=== PATIENT | male | born 1960 ===

== ENCOUNTER 2020-09-13 13:03 | Emergency (ER) | payer MEDICARE, MEDICAID, SELFPAY ==
--- NOTE | ~2020-09-13 | XR_ITS ---
EXAMINATION: XR ANKLE, RIGHT CLINICAL INFORMATION: Trauma, pain COMPARISON: None TECHNIQUE: AP, lateral, and mortise views of the right ankle. FINDINGS: There is no visible acute or healing fracture or dislocation or destructive process. The malleoli are intact and the ankle mortise is symmetric. There is spurring at tip medial malleolus. The retrocalcaneal recess is preserved. Visualized subtalar joint unremarkable. XR/XR ankle RT min 3V IMPRESSION: No fracture or dislocation.
[2020-09-13 13:44] VITALS: BP 141/86; PULSE 89; RESP 16; TEMP 36.8; O2SAT 100; BMI 24.1
--- NOTE | 2020-09-13 15:08 | ED_ITS ---
HPI - General Adult General Chief complaint: Extremity Injury, Lower Stated complaint: Rash Time Seen by Provider: 09/13/20 13:39 History of Present Illness HPI narrative: Patient with 2 complaints First complaint is itchy rash all over the body sparing the back in the scalp and including hands and genital area He was seen at [facility] for this told he likely has scabies and given permethrin cream which he used several days ago only applying it to the genital area because he misunderstood the directions It seemed to help the genital area briefly but now his whole body itchy remains the same He also complains of pain to right ankle after twisting it about a week ago, he can walk on it and it is improving Related Data Previous Rx's Medication Instructions Recorded cetirizine 10 mg PO DAILY PRN #14 cap 09/13/20 ivermectin 4.5 mg PO Q10D #3 tab 09/13/20 prednisone 40 mg PO DAILY #10 tab 09/15/20 lorazepam [Ativan] 1 mg PO BEDTIME PRN #7 tab 09/18/20 Allergies Allergy/AdvReac Type Severity Reaction Status Date / Time No Known Allergies Allergy Verified 09/13/20 13:43 Review of Systems Review of Systems: Positive for itchy rash Also positive for right ankle pain after twisting it Negatives are no fever no chills no dizziness no weakness no fainting no feeling faint no chest pain no shortness of breath no abdominal pain no nausea or vomiting no sore throat no difficulty breathing or swallowing no numbness weakness or tingling Yes all other systems are reviewed and are negative PMFSH Past Medical History Source: nursing notes reviewed Medical History (Updated 09/19/20 @ 00:01 by Sigrid España) Asthma Physical Exam Vital Signs: Vital Signs: Last Vital Signs Temp 98.2 F 09/13/20 13:44 Pulse 89 09/13/20 13:44 Resp 16 09/13/20 13:44 BP 141/86 H 09/13/20 13:44 Pulse Ox 100 09/13/20 13:44 Body Mass Index 24.1 general appearance no distress Head is normocephalic atraumatic Neck is supple Respiratory no distress Extremities full range of motion x4 including the right ankle which has some lateral malleolar tenderness and mild swelling but patient can walk with a mild limp, neurovascular intact distal Skin there is a papular rash over the arms the trunk the hands including web spaces the legs, some evidence of excoriation but no evidence of infection no tenderness no swelling no petechiae Course Course Course Narrative: patient had not been using is permethrin fowler cream correctly with insufficient application of medication so we are going to try ivermectin as I think scabies is the likely diagnosis The patient had negative ankle x-ray and is diagnosed with a mild ankle sprain and is walking easily Discharge Plan Discharge Clinical Impression: Scabies, Right ankle sprain Patient Disposition: Home, Self-Care Additional Instructions: I wrote for medication Ivermectin which should successfully treat scabies The correct way to use the permethrin cream is to apply it to the whole body below the scalp leave on overnight and shower off in the morning Because prednisone is upsetting her stomach you can stop using it We are trying cetirizine for to help control itch in the day and at night you can use 2 of your hydroxyzine tablets before bedtime If this does not work follow with primary doctor for referral to a casting room helper Return any concerns Prescriptions: New ivermectin 3 mg tablet 4.5 mg PO Q10D Qty: 3 RF: 0 cetirizine 10 mg capsule 10 mg PO DAILY PRN (Reason: allergy symptoms) Qty: 14 RF: 0 No Action prednisone 20 mg tablet 40 mg PO DAILY Qty: 10 RF: 0 lorazepam [Ativan] 1 mg tablet 1 mg PO BEDTIME PRN (Reason: sleep) Qty: 7 RF: 0 Interventions: ED Discharge Assessment Last Done: 09/13/20 15:26 Discharge Date/Time: 09/13/20 15:27
== END 2020-09-13 15:27 | disposition home or self-care (01) ==
PROVIDERS: Emergency Provider Emergency Medicine Emergency Medical Services
DX: B86 Scabies (principal); S93.401A Sprain of unspecified ligament of right ankle, initial encounter; X50.1XXA Overexertion from prolonged static or awkward postures, initial encounter; Y93.9 Activity, unspecified; Y92.9 Unspecified place or not applicable; Y99.9 Unspecified external cause status
CPT/HCPCS: 73610; 99283

== ENCOUNTER 2020-09-15 10:39 | Emergency (ER) | payer MEDICARE, MEDICAID, SELFPAY ==
[2020-09-15 10:54] VITALS: BP 158/89; PULSE 81; RESP 16; TEMP 36.6; O2SAT 100; BMI 24.0
--- NOTE | 2020-09-15 11:28 | ED_ITS ---
HPI - General Adult General Chief complaint: General Medical Stated complaint: rash Time Seen by Provider: 09/15/20 11:07 Source: patient Mode of arrival: ambulatory Limitations: no limitations History of Present Illness HPI narrative: Patient presents to significant itchiness. Patient diagnosed with scabies at [facility] [place] was seen in the ED 2 days ago and was prescribed Ivermectin. Patient just started takingit the past 2 days.. Patient as per prior visit did not use permethin correctly. Patient states now having same issue. Related Data Previous Rx's Medication Instructions Recorded cetirizine 10 mg PO DAILY PRN #14 cap 09/13/20 ivermectin 4.5 mg PO Q10D #3 tab 09/13/20 prednisone 40 mg PO DAILY #10 tab 09/15/20 Allergies Allergy/AdvReac Type Severity Reaction Status Date / Time No Known Allergies Allergy Verified 09/13/20 13:43 Review of Systems Review of Systems: Yes all other systems are reviewed and are negative Constitutional: Constitutional: Reports as per HPI and Reports no additional constitutional complaints Eyes: Eyes: Reports as per HPI and Reports no additional eye complaints ENT: Reports system reviewed and no additional complaints, except as documented and Reports as per HPI Cardiovascular: Cardiovascular: Reports as per HPI and Reports no additional cardiovascular complaints Respiratory: Respiratory: Reports as per HPI and Reports no additional respiratory complaints Gastrointestinal: Gastrointestinal: Reports as per HPI and Reports no additional gastrointestinal complaints Genitourinary: Genitourinary: Reports no additional male genitourinary complaints and Reports as per HPI Musculoskeletal: Musculoskeletal: Reports no additional musculoskeletal complaints and Reports as per HPI Comments: Itchy rash on skin Neurologic: Reports system reviewed and no additional complaints, except as documented and Reports as per HPI Psychiatric: Psychiatric: Reports no additional psychiatric complaints and Reports as per HPI [facility] Social History Social History Advance Directives: No Advance Directives Information Provided: No Physical Exam Vital Signs: Vital Signs: Last Vital Signs Temp 98 F 09/15/20 10:54 Pulse 81 09/15/20 10:54 Resp 16 09/15/20 10:54 BP 158/89 H 09/15/20 10:54 Pulse Ox 100 09/15/20 10:54 Body Mass Index 24.0 Const: General: cooperative, healthy appearing, comfortable, no acute distress, well developed, alert, awake and Physically active Orientation/consciousness: patient oriented x3 HENMT: Head: Yes normal to inspection, Yes No palpable skull fracture present, Yes normocephalic, Yes atraumatic and No abrasion Eyes: General: appearance normal, both eyes and all related structures Neck: Neck: Yes normal visual inspection, Yes full ROM and Yes no lymphadenopathy Chest: Chest palpation & inspection: normal inspection of the chest and normal palpation of entire chest wall Breast/axilla inspection: normal inspection of the breasts Resp: Effort & Inspection: normal respiratory effort and able to speak in complete sentences Auscultation: clear to auscultation bilaterally Cardio: Jugular venous distension: no JVD Heart sounds: S1 normal heart sound present and S2 normal heart sound present GI: Inspection: Yes normal to inspection and No abdominal wall ecchymosis Palpation (GI): Soft to palpation, not firm, nontender, no guarding and not rigid : General: No CVA tenderness and Yes no CVA tenderness Back/Spine/Pelvis: Back: no CVA tenderness, No CVA tenderness and No back tenderness Skin: Other: Positive for itchy papule on bilateral upper extremity, and genital area and thighs. Negative for any rash on the webs of fingers or feet General skin exam: no rashes or lesions noted and elasticity normal Neuro: General: patient oriented x3, gait normal and CN's II-XI intact bilaterally Cranial nerves: Yes CN's II-XII intact bilaterally Extrem: General: Yes normal to inspection and Yes full ROM Psych: Appearance: grossly normal, well kempt and not disheveled Course Course Course Narrative: Will re-evaluate. Reevaluation(s) Reevaluation #1: Patient already on in for permerthrin, ivermectin, cetrizine, promethazine, and hydroxyzine. Differential scabies versus dermatitis. Informed patient continue taking the meds and will discharge at p.o. steroids to regimen. Time: 11:33 Medical Decision Making [facility] Narrative Medical decision making narrative: Scabies, dermatitis Discharge Plan Discharge Clinical Impression: Scabies Patient Disposition: Home, Self-Care Instructions: Scabies (ED), Dermatitis (ED) Additional Instructions: Regrese al servicio de urgencias si tiene fiebre, escalofr?os, hinchaz?n de los labios, hinchaz?n de la lengua, dificultad para respirar, sensaci?n de cierre de la garganta, fiebre, escalofr?os, secreci?n de pus, mal olor, empeoramiento de la erupci?n o cualquier otro s?ntoma preocupante. Contin?e tomando los medicamentos recetados Prescriptions: New prednisone 20 mg tablet 40 mg PO DAILY Qty: 10 RF: 0 No Action ivermectin 3 mg tablet 4.5 mg PO Q10D Qty: 3 RF: 0 cetirizine 10 mg capsule 10 mg PO DAILY PRN (Reason: allergy symptoms) Qty: 14 RF: 0 Referrals: Allen Levy MD [Primary Care Provider] - 2 days (Scabies versus dermatitis. Patient taking permethrin, hydroxyzine, cetirizine, prednisone, and ivermectin.) Stand Alone Forms: Work/School Release Interventions: ED Discharge Assessment Last Done: 09/15/20 12:02 Discharge Date/Time: 09/15/20 12:03 Print Language: Armenian
== END 2020-09-15 12:03 | disposition home or self-care (01) ==
PROVIDERS: Emergency Provider Emergency Medicine; PCP Internal Medicine
DX: B86 Scabies (principal)
CPT/HCPCS: 99283

== ENCOUNTER 2020-09-18 14:11 | Emergency (ER) | payer MEDICARE, MEDICAID, SELFPAY ==
[2020-09-18 15:04] VITALS: BP 109/63; PULSE 81; RESP 16; TEMP 37.2; O2SAT 99; BMI 24.0
--- NOTE | 2020-09-18 15:12 | ED.SKABFB ---
HPI - Skin/Abscess/Foreign Bdy General Chief complaint: Skin/Abscess/Foreign Body Stated complaint: rash Time Seen by Provider: 09/18/20 15:12 History of Present Illness HPI narrative: This chart was opened in air there is no other chart that is completed and signed for this visit on this day Related Data Previous Rx's Medication Instructions Recorded cetirizine 10 mg PO DAILY PRN #14 cap 09/13/20 ivermectin 4.5 mg PO Q10D #3 tab 09/13/20 prednisone 40 mg PO DAILY #10 tab 09/15/20 lorazepam [Ativan] 1 mg PO BEDTIME PRN #7 tab 09/18/20 Allergies Allergy/AdvReac Type Severity Reaction Status Date / Time No Known Allergies Allergy Verified 09/13/20 13:43 [facility] Past Medical History Medical History (Updated 09/18/20 @ 16:35 by ALAYNA Thomas) Asthma Social History Social History Advance Directives: No Advance Directives Information Provided: No Physical Exam Vital Signs: Vital Signs: Last Vital Signs Temp 98.9 F 09/18/20 15:04 Pulse 81 09/18/20 15:04 Resp 16 09/18/20 15:04 BP 109/63 09/18/20 15:04 Pulse Ox 99 09/18/20 15:04 Body Mass Index 24.0 Discharge Plan Discharge Clinical Impression: Paraphimosis, Rash, skin Patient Disposition: Home, Self-Care Additional Instructions: The paraphimosis was reduced If foreskin gets stuck back any time return to the ER immediately as the longer it is stuck them worse the swelling in the more risks the circulation Follow with urologist for this problem For the rash which we think is scabies you took the medication 3 days ago and it is too soon to know if it worked so I will not change any treatment now As it is making it hard to sleep I wrote a prescription for some Ativan that can be used only at night if the itching is making it very difficult to sleep, this medicine does not help the itch but it may relaxing when able due to fall asleep It causes drowsiness so no driving for 6 hours after taking Prescriptions: New lorazepam [Ativan] 1 mg tablet 1 mg PO BEDTIME PRN (Reason: sleep) Qty: 7 RF: 0 No Action ivermectin 3 mg tablet 4.5 mg PO Q10D Qty: 3 RF: 0 cetirizine 10 mg capsule 10 mg PO DAILY PRN (Reason: allergy symptoms) Qty: 14 RF: 0 prednisone 20 mg tablet 40 mg PO DAILY Qty: 10 RF: 0 Referrals: Dagoberto Dunham MD [Physician] - 2 days (Paraphimosis reduced in the ER, 2nd time he has had a paraphimosis)
--- NOTE | 2020-09-18 16:40 | ED.SKABFB ---
HPI - Skin/Abscess/Foreign Bdy General Chief complaint: Skin/Abscess/Foreign Body Stated complaint: rash Time Seen by Provider: 09/18/20 15:12 History of Present Illness HPI narrative: Patient complains of inability to retract foreskin and swelling of the end of the penis for 3 days, he also complains of an itchy rash that he has had for many weeks and was just recently treated for scabies He has no burning with urination no abdominal pain no nausea no vomiting Related Data Previous Rx's Medication Instructions Recorded cetirizine 10 mg PO DAILY PRN #14 cap 09/13/20 ivermectin 4.5 mg PO Q10D #3 tab 09/13/20 prednisone 40 mg PO DAILY #10 tab 09/15/20 lorazepam [Ativan] 1 mg PO BEDTIME PRN #7 tab 09/18/20 Allergies Allergy/AdvReac Type Severity Reaction Status Date / Time No Known Allergies Allergy Verified 09/13/20 13:43 Review of Systems Review of Systems: Positive for inability to retract foreskin and a skin rash Negatives are no fever no chills no dizziness no weakness no headache no neck pain no throat swelling no shortness of breath no chest pain no abdominal pain no back pain no burning with urination or frequency of urination no discharge no testicular swelling no flank pain no blood in the urine Yes all other systems are reviewed and are negative PMFSH Past Medical History Source: nursing notes reviewed Medical History (Updated 09/19/20 @ 00:01 by Sigrid España) Asthma Physical Exam Vital Signs: Vital Signs: Last Vital Signs Temp 98.9 F 09/18/20 15:04 Pulse 81 09/18/20 15:04 Resp 16 09/18/20 15:04 BP 109/63 09/18/20 15:04 Pulse Ox 99 09/18/20 15:04 Body Mass Index 24.0 General appearance is no acute distress The neck is supple The eyes are not red there is no discharge Pharynx is clear Chest is clear to auscultation bilateral Abdomen soft nontender Genital exam there is a paraphimosis with pinkish reddish skin for the distal penis no necrotic area no blackness, no testicular swelling no discharge Extremities no edema Skin there is a papular rash that is generalized with some excoriation but no evidence of cellulitis or abscess Course Course Course Narrative: Paraphimosis was fully reduced with ice elevation compression and gentle pressure and foreskin was in appropriate place The rash she is advised as he just took the treatment for scabies which is the prior diagnosis 3 days ago it is too soon to know if the medication worked and he will follow with primary doctor or return if not improved in a few days Patient will follow with urologist to discuss need for circumcision or any further treatment for his paraphimosis which has now happened twice in his life The rash showed no sign of infection or any acute or dangerous problem and will be re-evaluated if the treatment for scabies did not work Discharge Plan Discharge Clinical Impression: Paraphimosis, Rash, skin Patient Disposition: Home, Self-Care Additional Instructions: The paraphimosis was reduced If foreskin gets stuck back any time return to the ER immediately as the longer it is stuck them worse the swelling in the more risks the circulation Follow with urologist for this problem For the rash which we think is scabies you took the medication 3 days ago and it is too soon to know if it worked so I will not change any treatment now As it is making it hard to sleep I wrote a prescription for some Ativan that can be used only at night if the itching is making it very difficult to sleep, this medicine does not help the itch but it may relaxing when able due to fall asleep It causes drowsiness so no driving for 6 hours after taking Prescriptions: New lorazepam [Ativan] 1 mg tablet 1 mg PO BEDTIME PRN (Reason: sleep) Qty: 7 RF: 0 No Action ivermectin 3 mg tablet 4.5 mg PO Q10D Qty: 3 RF: 0 cetirizine 10 mg capsule 10 mg PO DAILY PRN (Reason: allergy symptoms) Qty: 14 RF: 0 prednisone 20 mg tablet 40 mg PO DAILY Qty: 10 RF: 0 Referrals: Dagoberto Dunham MD [Physician] - 2 days (Paraphimosis reduced in the ER, 2nd time he has had a paraphimosis) Interventions: ED Discharge Assessment Last Done: 09/18/20 16:57 Discharge Date/Time: 09/18/20 16:59
== END 2020-09-18 16:59 | disposition home or self-care (01) ==
PROVIDERS: Emergency Provider Emergency Medicine; PCP Internal Medicine
DX: N47.2 Paraphimosis (principal)
CPT/HCPCS: 99283

== ENCOUNTER → 2020-10-08 13:16 | Outpatient (BNVA) | payer MEDICARE, MEDICAID, SELFPAY | PROVIDERS: PCP Internal Medicine; Visit Provider Urology | DX: L29.1 Pruritus scroti (principal) | CPT/HCPCS: 99202 ==

== ENCOUNTER 2020-10-31 14:37 | Emergency (ER) | payer MEDICARE, MEDICAID, SELFPAY ==
[2020-10-31 16:06] VITALS: BP 135/76; PULSE 108; RESP 18; TEMP 37.9; O2SAT 98; BMI 24.2
[2020-10-31 17:30] VITALS: BP 130/77; PULSE 103; TEMP 38.1; O2SAT 97
[2020-10-31 18:16] LABS: COVID-19 Test Positive (Negative)
--- NOTE | 2020-10-31 18:40 | ED.URI ---
HPI - URI/Sore Throat General Chief Complaint: Upper Respiratory Symptoms Stated Complaint: fever Time Seen by Provider: 10/31/20 18:35 Source: patient Mode of arrival: ambulatory Limitations: no limitations History of Present Illness HPI Narrative: Patient receivedfirst shot of COVID on 08/02/2020 did not receive 2nd shot ,went to [facility] comes back here for last 4 days of cold symptoms body aches other family member sick with same symptoms denies any significant shortness of breath patient was saturating 98% at room air low-grade fever body aches and dry cough Related Data Home Medications Medication Instructions Recorded Confirmed cimetidine 400 mg tablet mg PO 10/08/20 hydroxyzine HCl 10 mg tablet mg PO 10/08/20 permethrin 5 % topical cream appl TOPICAL 10/08/20 Previous Rx's Medication Instructions Recorded cetirizine 10 mg capsule 10 mg PO DAILY PRN #14 cap 09/13/20 ivermectin 3 mg tablet 4.5 mg PO Q10D #3 tab 09/13/20 prednisone 20 mg tablet 40 mg PO DAILY #10 tab 09/15/20 lorazepam 1 mg tablet (Ativan) 1 mg PO BEDTIME PRN #7 tab 09/18/20 amitriptyline 50 mg tablet 50 mg PO BEDTIME 30 Days #30 tab 10/08/20 doxycycline hyclate 100 mg tablet 100 mg PO BID 7 Days #14 tab 10/08/20 Allergies Allergy/AdvReac Type Severity Reaction Status Date / Time No Known Allergies Allergy Verified 10/08/20 13:27 Review of Systems Review of Systems: Yes all other systems are reviewed and are negative PMFSH Past Medical History Medical History Asthma Social History Social History Patient Tobacco Use Status: Never used Tobacco Use of substances other than those prescribed or required for medical reasons: No Advance Directives: No Advance Directives Information Provided: Yes Physical Exam Vital Signs: Vital Signs: Last Vital Signs Temp 100.5 F H 10/31/20 17:30 Pulse 103 H 10/31/20 17:30 Resp 18 10/31/20 16:06 BP 130/77 10/31/20 17:30 Pulse Ox 97 10/31/20 17:30 Body Mass Index 24.2 Appearance: Alert. Oriented X3. No acute distress. Eyes: PERRLA, No Nystagmus ENT: Pharynx normal. Oral Mucosa moist Neck: Normal inspection. Neck supple. CVS: Normal heart rate and rhythm. Pulses normal. Respiratory: No respiratory distress. Equal air entry bilateral, no wheezing/rales/rhonchi Abdomen: Soft and nontender. Bowel sounds are present, no mass palpable, no CVA tenderness Skin: Skin warm and dry. Normal skin color. Normal skin turgor. Extremities: No lower extremity edema. No calf tenderness Neuro: Oriented X 3. No motor deficit. MDM - URI/Sore Throat MDM Narrative Medical decision making narrative: Patient with mild COVID symptoms partially vaccinated saturating 98% will treat him symptomatically will give him prescription for Decadron advised to drink plenty of fluids and take Tylenol for fever Lab Data Attestation: I reviewed the patient's lab results. Labs: Lab Results 10/31/20 Range/Units 17:59 COVID-19 (VENKAT) Positive A (Negative) COVID-19 Clin Com See Note Discharge Plan Discharge Prescriptions: No Action ivermectin 3 mg tablet 4.5 mg PO Q10D Qty: 3 RF: 0 cetirizine 10 mg capsule 10 mg PO DAILY PRN (Reason: allergy symptoms) Qty: 14 RF: 0 prednisone 20 mg tablet 40 mg PO DAILY Qty: 10 RF: 0 lorazepam [Ativan] 1 mg tablet 1 mg PO BEDTIME PRN (Reason: sleep) Qty: 7 RF: 0 doxycycline hyclate 100 mg tablet 100 mg PO BID 7 Days Qty: 14 RF: 0 amitriptyline 50 mg tablet 50 mg PO BEDTIME 30 Days Qty: 30 RF: 0
[2020-10-31] MEDS: dexAMETHasone 6 MG TABLET PO (19:06)
[2020-10-31] MEDS: Acetaminophen 325 MG TABLET 650 MG PO (19:06)
== END 2020-10-31 20:09 | disposition home or self-care (01) ==
PROVIDERS: Emergency Provider Internal Medicine; PCP Internal Medicine
DX: J06.9 Acute upper respiratory infection, unspecified (principal); R50.9 Fever, unspecified; R05 Cough; Z20.822 Contact with and (suspected) exposure to COVID-19; Z79.899 Other long term (current) drug therapy
CPT/HCPCS: 36415; 87635; 99285; J8540

== ENCOUNTER 2020-11-09 13:05 | Emergency (ER) | payer MEDICARE, MEDICAID, SELFPAY ==
--- NOTE | 2020-11-09 | ECG_ITS ---
Test Reason : CHEST PAIN Blood Pressure : / mmHG Vent. Rate : 059 BPM Atrial Rate : 059 BPM P-R Int : 152 ms QRS Dur : 086 ms QT Int : 402 ms P-R-T Axes : 051 036 025 degrees QTc Int : 397 ms Sinus bradycardia Otherwise normal ECG No previous ECGs available Referred By: Generic ED Physician Electronically Signed By:MANUEL FLEMING MD
--- NOTE | ~2020-11-09 | XR_ITS ---
EXAMINATION: XR CHEST CLINICAL INFORMATION: Shortness of breath, chest pain. Covid positive. COMPARISON: None TECHNIQUE: Frontal view of the chest was obtained. FINDINGS: The lungs are clear. The cardiomediastinal silhouette is normal in size. There is no pleural effusion or pneumothorax. No acute osseous abnormality. XR/XR chest 1V IMPRESSION: No acute cardiopulmonary findings.
[2020-11-09 15:32] VITALS: BP 157/91; PULSE 72; RESP 18; TEMP 35.6; O2SAT 100; BMI 24.0
[2020-11-09 16:30] LABS: MANUAL DIFF FLAG NO
[2020-11-09 16:32] LABS: Basophils Percent Auto 0.1 % (0-2); Eosinophils Absolute Auto 0.2 X10*3/uL (0.0-0.4); Eosinophils Percent Auto 2.4 % (0-4); Hematocrit 45.8 % (42-52); Imm Gran Abs Auto 0.23 X10*3/uL (0.00-0.03); Imm Gran Pct Auto 2.6 % (0.0-0.4); Lymphocytes Absolute Auto 2.5 X10*3/uL (1.2-4.9); Mean Corpuscular HGB Conc 32.8 g/dl (31.0-36.0); Mean Corpuscular Hemoglobin 29.3 pg (27.0-33.0); Mean Corpuscular Volume 89.5 fL (80-98); Mean Platelet Volume 9.9 fL (9.4-12.4); Monocytes Absolute Auto 0.7 X10*3/uL (0.1-1.2); Monocytes Percent Auto 7.5 % (2-11); Neutrophils Absolute Auto 5.3 X10*3/uL (2.0-8.3); Neutrophils Percent Auto 59.4 % (45-73); Platelet Count 253 X10*3/uL (160-400); Red Blood Count 5.12 X10*6/uL (4.60-5.80); White Blood Count 8.9 X10*3/uL (4.8-10.8)
[2020-11-09 16:43] LABS: D Dimer < 200 NG/ML
[2020-11-09 16:54] LABS: Anion Gap 10 (12-20); Blood Urea Nitrogen 19 mg/dL (9-16); Calcium 9.1 mg/dL (8.4-10.2); Carbon Dioxide 32 mmol/L (22-29); Chloride 105 mmol/L (96-108); Estimated Glomerular Filt Rate > 60; Glucose Random 87 mg/dL (60-115); Potassium 3.9 mmol/L (3.3-5.1); Sodium 143 mmol/L (135-145)
[2020-11-09 19:13] LABS: Troponin-I High Sensitivity < 3.5 ng/L (<3.5-35.0)
--- NOTE | 2020-11-09 19:17 | ED.CHESTPAIN ---
HPI - Chest Pain General Chief Complaint: Chest Pain Stated Complaint: covid positive, sob chest pain Time Seen by Provider: 11/09/20 19:03 Source: patient and lang interpreter Mode of arrival: ambulatory Limitations: no limitations and language barrier History of Present Illness HPI narrative: 60-year-old male with a past medical history of asthma here with complaints of epigastric burning at 07:00 this morning with 1 episode of vomiting. This occurred after he ate his breakfast. Denies any associated shortness of breath, cough, fever, chills. Patient was COVID positive October 31. He tells me he had mild cough and cold symptoms which lasted several days and have resolved and he has been feeling well. No leg swelling or pain. No fevers or chills. No history of GERD Related Data Home Medications Medication Instructions Recorded Confirmed cimetidine 400 mg tablet mg PO 10/08/20 hydroxyzine HCl 10 mg tablet mg PO 10/08/20 permethrin 5 % topical cream appl TOPICAL 10/08/20 Previous Rx's Medication Instructions Recorded cetirizine 10 mg capsule 10 mg PO DAILY PRN #14 cap 09/13/20 ivermectin 3 mg tablet 4.5 mg PO Q10D #3 tab 09/13/20 prednisone 20 mg tablet 40 mg PO DAILY #10 tab 09/15/20 lorazepam 1 mg tablet (Ativan) 1 mg PO BEDTIME PRN #7 tab 09/18/20 amitriptyline 50 mg tablet 50 mg PO BEDTIME 30 Days #30 tab 10/08/20 doxycycline hyclate 100 mg tablet 100 mg PO BID 7 Days #14 tab 10/08/20 dexamethasone 6 mg tablet 6 mg PO DAILY #7 tab 10/31/20 (Decadron) omeprazole 40 mg capsule,delayed 40 mg PO DAILY #30 cap 11/09/20 release Allergies Allergy/AdvReac Type Severity Reaction Status Date / Time No Known Allergies Allergy Verified 10/08/20 13:27 Review of Systems Review of Systems: Yes all other systems are reviewed and are negative Constitutional: Constitutional: Reports no additional constitutional complaints, Denies body ache(s), Denies chills, Denies fever(s), Denies headache(s) and Denies weakness Eyes: Eyes: Reports no additional eye complaints and Denies change in vision ENT: Reports system reviewed and no additional complaints, except as documented, Denies dizziness, Denies headache(s), Denies nasal congestion, Denies nasal discharge and Denies neck pain Cardiovascular: Cardiovascular: Reports no additional cardiovascular complaints, Denies chest pain, Denies leg edema and Denies dyspnea Respiratory: Respiratory: Reports no additional respiratory complaints, Denies cough and Denies dyspnea Gastrointestinal: Gastrointestinal: Reports no additional gastrointestinal complaints, Reports abdominal pain, Denies diarrhea, Reports nausea and Reports vomiting Genitourinary: Genitourinary: Denies urinary incontinence Musculoskeletal: Musculoskeletal: Reports no additional musculoskeletal complaints, Denies back pain, Denies arthralgias, Denies joint swelling, Denies neck pain, Denies numbness and Denies tingling Integumentary/Breasts: Skin/Breast: Reports system reviewed and no additional complaints, except as docu and Denies rash Neurologic: Reports system reviewed and no additional complaints, except as documented, Denies Abnormal speech present, Denies dizziness, Denies headache(s), Denies numbness, Denies tingling and Denies weakness PMF Past Medical History Attestation statement: The following information was validated with the patient. Source: old records reviewed and nursing notes reviewed Medical History Asthma Social History Social History Patient Tobacco Use Status: Never used Tobacco Advance Directives: No Advance Directives Information Provided: No Physical Exam Vital Signs: Vital Signs: Last Vital Signs Temp 96.1 F L 11/09/20 15:32 Pulse 72 11/09/20 15:32 Resp 18 11/09/20 15:32 BP 157/91 H 11/09/20 15:32 Pulse Ox 100 11/09/20 15:32 Body Mass Index 24.0 Const: General: cooperative, healthy appearing, comfortable and no acute distress Orientation/consciousness: patient oriented x3 Limitations: no limitations HENMT: Head: Yes normal to inspection Ears: hearing grossly normal bilaterally General nose exam: Normal external nose present Face and sinus: Yes normal facial exam Mouth: Normal oral and palatal mucosa present Throat: Yes posterior oropharynx normal Eyes: General: appearance normal, both eyes and all related structures Pupils: Equal, round and reactive pupils present Neck: Neck: Yes normal visual inspection Chest: Chest palpation & inspection: normal inspection of the chest Resp: Effort & Inspection: normal respiratory effort Auscultation: clear to auscultation bilaterally Cardio: Rate: regular rate Rhythm: regular rhythm Peripheral pulses: Peripheral pulses 2+ throughout GI: Other: No rebound Inspection: Yes normal to inspection Palpation (GI): Soft to palpation, nontender and no guarding Auscultation: normal bowel sounds Back/Spine/Pelvis: Thoracic/Lumbar Spine: thoracic and lumbar spine normal to inspection Skin: General skin exam: no rashes or lesions noted Neuro: General: patient oriented x3, no focal motor deficits and normal sensation to monofilament Cranial nerves: Yes Equal, round and reactive pupils present Cognition (Neuro): normal cognition Speech: No Abnormal speech present Gait exam (Neuro): Normal gait present Motor exam (neuro): 5/5 motor strength present throughout Extrem: General: Yes normal to inspection, Yes no pedal edema and Yes no calf tenderness Course Course Course Narrative: 60-year-old male who was COVID positive October 31 with mild symptoms is here today after having 1 episode of vomiting with some epigastric burning at 07:00 this morning after eating his breakfast.. Patient tells me since being in the waiting room his symptoms have completely resolved. On my exam he has no complaints of pain or nausea and is drinking fluids with no difficulty. He denies any associated shortness of breath, chest pain, fevers or chills with the above symptoms. Will check labs, EKG, chest x-ray. 2000-labs unremarkable. EKG shows no acute finding and chest x-ray is normal. Likely gastric reflux.. Will start patient on PPI and recommend GERD diet. Reviewed worrisome signs and symptoms of when to return to the emergency department. Comfortable discharge home. MDM - Chest Pain Medical Records Data Attestation: I reviewed the patient's medical records. Lab Data Attestation: I reviewed the patient's lab results. Result diagrams: 11/09/20 16:26 11/09/20 16: Labs: Lab Results 11/09/20 11/09/20 11/09/20 Range/Units 16:26 16:26 16:26 WBC 8.9 (4.8-10.8) X10*3/uL RBC 5.12 (4.60-5.80) X10*6/uL Hgb 15.0 (14.0-18.0) g/dl Hct 45.8 (42-52) % MCV 89.5 (80-98) fL MCH 29.3 (27.0-33.0) pg MCHC 32.8 (31.0-36.0) g/dl RDW 12.0 (11.0-16.0) % Plt Count 253 (160-400) X10*3/uL MPV 9.9 (9.4-12.4) fL Immature Gran % (Auto) 2.6 H (0.0-0.4) % Neut % (Auto) 59.4 (45-73) % Lymph % (Auto) 28.0 (20-40) % [place] % (Auto) 7.5 (2-11) % Eos % (Auto) 2.4 (0-4) % Baso % (Auto) 0.1 (0-2) % Lymph # (Auto) 2.5 (1.2-4.9) X10*3/uL [place] # (Auto) 0.7 (0.1-1.2) X10*3/uL Eos # (Auto) 0.2 (0.0-0.4) X10*3/uL Baso # (Auto) 0.0 (0.0-0.2) X10*3/uL Abs Immat Gran (auto) 0.23 H (0.00-0.03) X10*3/uL Absolute Neuts (auto) 5.3 (2.0-8.3) X10*3/uL Absolute Nucleated RBC 0.000 (0.0-0.012) X10*3/uL Nucleated RBC % (auto) 0.0 (0.0-0.2) /100WBC D-Dimer < 200 NG/ML Sodium 143 (135-145) mmol/L Potassium 3.9 (3.3-5.1) mmol/L Chloride 105 (96-108) mmol/L Carbon Dioxide 32 H (22-29) mmol/L Anion Gap 10 L (12-20) BUN 19 H (9-16) mg/dL Creatinine 0.88 (0.5-1.4) mg/dL Estim Creat Clear Calc 95.0 Estimated GFR > 60 Random Glucose 87 (60-115) mg/dL Calcium 9.1 (8.4-10.2) mg/dL Magnesium 2.2 (1.6-2.6) mg/dL Ferritin 288 H (20-250) ng/mL Total Bilirubin 0.4 (0.0-1.0) mg/dL Direct Bilirubin < 0.2 (0.0-0.5) mg/dL AST 19 (5-37) U/L ALT 30 (0-40) U/L Alkaline Phosphatase 86 (39-117) U/L Lactate Dehydrogenase 182 (118-273) U/L Troponin I High Sens (<3.5-35.0) ng/L C-Reactive Protein 0.15 (< or = 0.50) mg/dL Total Protein 7.2 (6.5-8.0) g/dL Albumin 4.1 (3.5-5.0) g/dL Procalcitonin ng/mL 11/09/20 11/09/20 Range/Units 16:26 18:43 WBC (4.8-10.8) X10*3/uL RBC (4.60-5.80) X10*6/uL Hgb (14.0-18.0) g/dl Hct (42-52) % MCV (80-98) fL MCH (27.0-33.0) pg MCHC (31.0-36.0) g/dl RDW (11.0-16.0) % Plt Count (160-400) X10*3/uL MPV (9.4-12.4) fL Immature Gran % (Auto) (0.0-0.4) % Neut % (Auto) (45-73) % Lymph % (Auto) (20-40) % [place] % (Auto) (2-11) % Eos % (Auto) (0-4) % Baso % (Auto) (0-2) % Lymph # (Auto) (1.2-4.9) X10*3/uL [place] # (Auto) (0.1-1.2) X10*3/uL Eos # (Auto) (0.0-0.4) X10*3/uL Baso # (Auto) (0.0-0.2) X10*3/uL Abs Immat Gran (auto) (0.00-0.03) X10*3/uL Absolute Neuts (auto) (2.0-8.3) X10*3/uL Absolute Nucleated RBC (0.0-0.012) X10*3/uL Nucleated RBC % (auto) (0.0-0.2) /100WBC D-Dimer NG/ML Sodium (135-145) mmol/L Potassium (3.3-5.1) mmol/L Chloride (96-108) mmol/L Carbon Dioxide (22-29) mmol/L Anion Gap (12-20) BUN (9-16) mg/dL Creatinine (0.5-1.4) mg/dL Estim Creat Clear Calc Estimated GFR Random Glucose (60-115) mg/dL Calcium (8.4-10.2) mg/dL Magnesium (1.6-2.6) mg/dL Ferritin (20-250) ng/mL Total Bilirubin (0.0-1.0) mg/dL Direct Bilirubin (0.0-0.5) mg/dL AST (5-37) U/L ALT (0-40) U/L Alkaline Phosphatase (39-117) U/L Lactate Dehydrogenase (118-273) U/L Troponin I High Sens < 3.5 (<3.5-35.0) ng/L C-Reactive Protein (< or = 0.50) mg/dL Total Protein (6.5-8.0) g/dL Albumin (3.5-5.0) g/dL Procalcitonin 0.02 ng/mL Imaging Data Chest x-ray: Attestation: I personally reviewed and interpreted this imaging study as follows: Radiologist's impression: [place] [id number] XRay Report Signed Patient: Andrea Ba MR#: [id number] : 1960 Acct:[id number] Age/Sex: 60 / M ADM Date: 11/09/20 Loc: .ED Attending Dr: Ordering Physician: KECIA MATTA NP Date of Service: 11/09/20 Procedure(s): XR chest 1V Accession Number(s): [id number] cc: KECIA MATTA NP~ EXAMINATION: XR CHEST CLINICAL INFORMATION: Shortness of breath, chest pain. Covid positive. COMPARISON: None TECHNIQUE: Frontal view of the chest was obtained. FINDINGS: The lungs are clear. The cardiomediastinal silhouette is normal in size. There is no pleural effusion or pneumothorax. No acute osseous abnormality. XR/XR chest 1V IMPRESSION: No acute cardiopulmonary findings. ECG Data ECG #1: Attestation: I personally reviewed and interpreted this ECG as follows: ECG interpretation date: 11/09/20 ECG interpretation time: 20:00 Interpretation: Normal sinus rhythm with a rate of 59, normal TX, normal QRS, normal QT Discharge Plan Discharge Clinical Impression: GERD (gastroesophageal reflux disease) Patient Disposition: Home, Self-Care Instructions: Gastroesophageal Reflux Disease (ED) Additional Instructions: Your EKG, labs all look normal. This is likely gastric reflux. Follow up with her primary care doctor as needed Prescriptions: New omeprazole 40 mg capsule,delayed release(DR/EC) 40 mg PO DAILY Qty: 30 RF: 0 No Action ivermectin 3 mg tablet 4.5 mg PO Q10D Qty: 3 RF: 0 cetirizine 10 mg capsule 10 mg PO DAILY PRN (Reason: allergy symptoms) Qty: 14 RF: 0 dexamethasone [Decadron] 6 mg tablet 6 mg PO DAILY Qty: 7 RF: 0 prednisone 20 mg tablet 40 mg PO DAILY Qty: 10 RF: 0 lorazepam [Ativan] 1 mg tablet 1 mg PO BEDTIME PRN (Reason: sleep) Qty: 7 RF: 0 doxycycline hyclate 100 mg tablet 100 mg PO BID 7 Days Qty: 14 RF: 0 amitriptyline 50 mg tablet 50 mg PO BEDTIME 30 Days Qty: 30 RF: 0 Referrals: Physician,Unknown [Primary Care Provider] - 2 days Print Language: Divehi
[2020-11-09 19:26] LABS: Alanine Aminotransferase 30 U/L (0-40); Albumin Level 4.1 g/dL (3.5-5.0); Alkaline Phosphatase 86 U/L (39-117); Aspartate Amino Transferase 19 U/L (5-37); Bilirubin Direct < 0.2 mg/dL (0.0-0.5); Bilirubin Total 0.4 mg/dL (0.0-1.0); C Reactive Protein 0.15 mg/dL (< or = 0.50); Lactate Dehydrogenase 182 U/L (118-273); Magnesium 2.2 mg/dL (1.6-2.6); Total Protein 7.2 g/dL (6.5-8.0)
[2020-11-09 19:46] LABS: Ferritin 288 ng/mL (20-250)
[2020-11-09 19:47] LABS: Procalcitonin 0.02 ng/mL
[2020-11-09 20:05] LABS: B Type Natriuretic Peptide 29 pg/mL (<100)
[2020-11-09 21:02] VITALS: BP 144/82; PULSE 72; RESP 16; O2SAT 100
== END 2020-11-09 21:04 | disposition home or self-care (01) ==
PROVIDERS: Nurse Practitioner Family; Emergency Provider Emergency Medicine Emergency Medical Services
DX: K21.9 Gastro-esophageal reflux disease without esophagitis (principal); J45.909 Unspecified asthma, uncomplicated; Z86.16 Personal history of COVID-19
CPT/HCPCS: 36415; 71045; 80048; 80076; 82728; 83615; 83735; 83880; 84145; 84484; 85025; 85379; 86140; 93005; 99283

== ENCOUNTER 2021-05-18 10:39 | Outpatient (REF) | payer MEDICARE, MEDICAID, SELFPAY ==
[2021-05-18 11:08] LABS: Binax Now Covid-19 Ag Negative (Negative)
[2021-05-18 11:09] LABS: Binax Internal Control QC Valid; Binax Performed by: HO.BONILM
== END 2021-05-18 10:40 | disposition home or self-care (01) ==
LOC: HO.HMGCLDS 10:39
PROVIDERS: PCP Internal Medicine; Visit Provider Physician Assistant
DX: Z13.89 Encounter for screening for other disorder (principal)

== ENCOUNTER 2022-08-13 08:57 | Emergency (ER) | payer MEDICARE, MEDICAID, SELFPAY ==
[2022-08-13 09:00] VITALS: BP 131/76; PULSE 74; RESP 16; TEMP 36.6; O2SAT 98; BMI 24.0
--- NOTE | 2022-08-13 09:06 | ED_ITS ---
HPI - Back Pain/Injury General Chief Complaint: Back Pain/Injury Stated Complaint: R side lower back pain Time Seen by Provider: 08/13/22 09:04 Source: patient and old records reviewed Mode of arrival: ambulatory Limitations: no limitations History of Present Illness HPI Narrative: 62 yo Japanese speaking male presents to the ER for evaluation of right sided low back pain for the last 4 days after doing heavy lifting. He states the pain started gradually and has gotten worse over the last few days. The pain is located in his right lower back and radiates to the right buttock and right hip and thigh. He is having trouble sleeping due to the pain. It is worse with movement. No urinary or bowel issues. No fever or chills. No weakness in numbness in his legs. MD elicited complaint: back pain Onset (ago): day(s) (4) Timing: constant and progressively worsening Severity: severe Pain scale (0-10): 10 Similar Symptoms Previously: Yes Quality: stabbing and aching Location: right lower back Radiation: buttocks and right upper leg Exacerbating factors: movement Relieving factors: immobilization Context: while lifting Associated symptoms: denies other symptoms Treatments prior to arrival: other medications Work related injury: No Related Data Home Medications Medication Instructions Recorded Confirmed cimetidine 400 mg tablet mg PO 10/08/20 hydroxyzine HCl 10 mg tablet mg PO 10/08/20 permethrin 5 % topical cream appl topical 10/08/20 Previous Rx's Medication Instructions Recorded cetirizine 10 mg capsule 10 mg PO DAILY PRN allergy 09/13/20 symptoms #14 caps lorazepam 1 mg tablet (Ativan) 1 mg PO BEDTIME PRN sleep #7 tabs 09/18/20 amitriptyline 50 mg tablet 50 mg PO BEDTIME 30 days #30 tabs 10/08/20 dexamethasone 6 mg tablet 6 mg PO DAILY #7 tabs 10/31/20 (Decadron) omeprazole 40 mg capsule,delayed 40 mg PO DAILY #30 caps 11/09/20 release cyclobenzaprine 10 mg tablet 10 mg PO TID PRN muscle spasm #14 08/13/22 tabs ibuprofen 600 mg tablet 600 mg PO Q8H PRN pain #14 tabs 08/13/22 lidocaine 5 % topical patch 1 patch topical DAILY #15 ea 08/13/22 prednisone 20 mg tablet 40 mg PO DAILY #10 tabs 08/13/22 Allergies Allergy/AdvReac Type Severity Reaction Status Date / Time No Known Allergies Allergy Verified 05/18/21 10:20 Review of Systems Review of Systems: Yes all other systems are reviewed and are negative [facility] Past Medical History Medical History Asthma Social History Social History Alcohol intake: current Alcohol intake frequency: holidays/special occasions only Alcohol type: beer Patient Tobacco Use Status: Never used Tobacco Smoked in Last 30 Days: No Use of substances other than those prescribed or required for medical reasons: No Advance Directives: No Advance Directives Information Provided: Yes Physical Exam Vital Signs: Vital Signs: Last Vital Signs Temp 97.8 F 08/13/22 09:00 Pulse 74 08/13/22 09:00 Resp 16 08/13/22 09:00 BP 131/76 08/13/22 09:00 Pulse Ox 98 08/13/22 09:00 O2 Del Method Room Air 08/13/22 09:00 BMI result Body Mass Index 24.0 Appearance: Alert. Oriented X3. No acute distress. HEENT: normal inspection CVS: Normal heart rate and rhythm. Pulses normal. Respiratory: No respiratory distress. Skin: Skin warm and dry. Normal skin color. Normal skin turgor. No rashes. Back: normal inspection, soft tissue tenderness in the right middle and lumbar areas, + SI joint tenderness. +straight leg raise test at 45 degrees. limited spinal flexion due to pain Extremities: normal inspection x4 Neuro: Oriented X 3. No motor deficit. No sensory deficit. normal DTRs. steady gait Medications Administered Discontinued Medications Generic Name Dose Route Start Last Admin Trade Name Freq PRN Reason Stop Dose Admin Acetaminophen 975 mg 08/13/22 09:26 08/13/22 09:37 Acetaminophen 325 Mg Tablet PO 08/13/22 09:27 975 mg ONCE ONE Administration Ketorolac Tromethamine 30 mg 08/13/22 09:26 08/13/22 09:37 Ketorolac Tromethamine 30 Mg/Ml Vial IM 08/13/22 09:27 30 mg ONCE ONE Administration Medical Decision Making Medical Decision Making MDM Narrative: 62 yo male presenting with right sided LBP after lifting. no red flag symptoms of LBP. exam c/w lumbar radiculopathy and muscle strain/spasm. will treat accordingly. given toradol in the ER. encouraged to f/u with his PCP next week. given low back exercised to do as well. corporate staff accountant used to explain diagnosis and management as well as return precautions. Differential Diagnosis Differential Diagnoses: The differential diagnosis associated with the presentation includes Inflammatory disorders, malignancy, trauma, osteoporosis, nerve root compression, radiculopathy, plexopathy, degenerative disc disease, disc herniation, spinal stenosis, sacroiliac joint dysfunction, facet joint injury, and less likely infection?like abscess or diskitis External Record Review External record reviewed: Prior outpatient labs Prescription Management I considered prescription management with: Pain Medication Critical Care Time Critical Care Time Critical Care Time: No Discharge Plan Discharge Clinical Impression: Strain of lumbar region, Lumbar radiculopathy Patient Disposition: Home, Self-Care Instructions: Low Back Strain (ED), Lower Back Exercises (ED) Additional Instructions: Your pain is most likely due to muscle strain and spasm. No bending, lifting or twisting. Use ice several times per day for 20 minutes at a time for the next 48 hours and then change to heat. Take medications as prescribed to help with pain and discomfort. Follow up with your Primary Care Doctor this week. If your pain worsens, if you develop new numbness, tingling, weakness, loss of function or incontinence call 911 or come back to the ER right away for evaluati on. Lo m?s probable es que rivera dolor se deba a tensi?n y espasmos musculares. Sin doblar, levantar o torcer. Use hielo varias veces al d?a guido 20 minutos a la vez guido las pr?ximas 48 horas y luego cambie a calor. [place] los medicamentos seg?n lo prescrito para ayudar con el dolor y la incomodidad. Walt un seguimiento con rivera m?dico de atenci?n primaria esta semana. Si rivera dolor empeora, si desarrolla un nuevo entumecimiento, hormigueo, debilidad, p?rdida de funci?n o incontinencia, llame al 911 o regrese a la constanza de emergencias de inmediato para silverio evaluaci?n. Prescriptions: New cyclobenzaprine 10 mg tablet 10 mg PO TID PRN (Reason: muscle spasm) Qty: 14 0RF ibuprofen 600 mg tablet 600 mg PO Q8H PRN (Reason: pain) Qty: 14 0RF lidocaine 5 % adhesive patch,medicated 1 patch topical DAILY Qty: 15 0RF Rx Instructions: leave on most painful area for up to 12 hrs prednisone 20 mg tablet 40 mg PO DAILY Qty: 10 0RF No Action cetirizine 10 mg capsule 10 mg PO DAILY PRN (Reason: allergy symptoms) Qty: 14 0RF dexamethasone [Decadron] 6 mg tablet 6 mg PO DAILY Qty: 7 0RF lorazepam [Ativan] 1 mg tablet 1 mg PO BEDTIME PRN (Reason: sleep) Qty: 7 0RF omeprazole 40 mg capsule,delayed release(DR/EC) 40 mg PO DAILY Qty: 30 0RF hydroxyzine HCl 10 mg tablet PO cimetidine 400 mg tablet PO permethrin 5 % cream topical amitriptyline 50 mg tablet 50 mg PO BEDTIME 30 Days Qty: 30 0RF Referrals: Allen Levy III, MD [Primary Care Provider] -
[2022-08-13] MEDS: Ketorolac Tromethamine 30 MG/ML VIAL IM (09:37)
[2022-08-13] MEDS: Acetaminophen 325 MG TABLET 975 MG PO (09:37)
--- NOTE | 2022-08-13 09:52 | PC.NURSE ---
Patient presents this morning with back pain. Patient states that on he was lifting a box and since then he has had back pain that has slowly been getting worse. Patient is otherwise generally well appearing, able to move all extremities but he does give right leg a little more assistance.
== END 2022-08-13 09:56 | disposition home or self-care (01) ==
PROVIDERS: Emergency Provider Emergency Medicine; PCP Internal Medicine
DX: S39.012A Strain of muscle, fascia and tendon of lower back, initial encounter (principal); M54.16 Radiculopathy, lumbar region; X50.0XXA Overexertion from strenuous movement or load, initial encounter; X50.3XXA Overexertion from repetitive movements, initial encounter; Y93.9 Activity, unspecified; Y92.9 Unspecified place or not applicable; Y99.9 Unspecified external cause status; Z79.899 Other long term (current) drug therapy
CPT/HCPCS: 96372; 99284; J1885

== ENCOUNTER 2023-05-29 16:02 | Emergency (ER) | payer MEDICARE, MEDICAID, SELFPAY ==
--- NOTE | ~2023-05-29 | XR_ITS ---
EXAMINATION: XR HAND/WRIST, RIGHT CLINICAL INFORMATION: Fall, pain and swelling. COMPARISON: None TECHNIQUE: PA, lateral, and oblique views of the right hand and wrist. FINDINGS: Comminuted, displaced and impacted fracture of the distal third metacarpal with intra-articular extension into the metacarpophalangeal joint space. Surrounding soft tissue swelling. No unexpected radiopaque foreign bodies. Evaluation of the phalanges is limited due to flexion of the digits. XR/XR hand wrist RT IMPRESSION: Comminuted, displaced and impacted fracture of the distal third metacarpal with intra-articular extension into the metacarpophalangeal joint space.
[2023-05-29 16:05] VITALS: BP 134/89; PULSE 90; RESP 20; TEMP 36.9; O2SAT 98; BMI 28.2
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
[2023-05-29 19:02] VITALS: BP 118/73; PULSE 66; RESP 20; TEMP 36.4; O2SAT 96
--- NOTE | 2023-05-29 20:07 | PC.NURSE ---
Fiberglass splint applied to right hand/forearm by provider. Patient is gabonese speaking, historic interpreter (Uri) at bedside. also at bedside. Pt requesting pain medication at this time. Plan to discharge with administration of pain medication, with follow-up with hand/ortho specialist.
[2023-05-29] MEDS: Morphine Sulfate Immed Release 15 MG TABLET PO (20:28)
[2023-05-29] MEDS: Acetaminophen 325 MG TABLET 975 MG PO (20:28)
== END 2023-05-29 20:37 | disposition home or self-care (01) ==
PROVIDERS: Emergency Provider Emergency Medicine; PCP Internal Medicine
DX: S62.302A Unspecified fracture of third metacarpal bone, right hand, initial encounter for closed fracture (principal); M79.641 Pain in right hand; W01.10XA Fall on same level from slipping, tripping and stumbling with subsequent striking against unspecified object, initial encounter; Y93.9 Activity, unspecified; Y92.9 Unspecified place or not applicable; Y99.8 Other external cause status
CPT/HCPCS: 29130; 73110; 73130; 99283; 99284

== ENCOUNTER 2023-06-01 13:32 | Outpatient (REF) | payer MEDICARE, MEDICAID, SELFPAY ==
--- NOTE | ~2023-06-01 | XR_ITS ---
EXAMINATION: XR HAND, RIGHT CLINICAL INFORMATION: Follow-up fracture COMPARISON: 05/29/2023 TECHNIQUE: PA, lateral, and oblique views of the right hand. FINDINGS: There is stable appearance of comminuted, displaced fracture with impaction of fragments in the distal third of third metacarpal bone on the right with intra-articular involvement and small avulsion fragment in the soft tissues. There is soft tissue swelling dorsally. XR/XR hand RT min 3V IMPRESSION: No interval change in an appearance of comminuted, mildly displaced and impacted fracture of distal third of third metacarpal bone with intra-articular involvement and avulsion fragment seen.
== END 2023-06-01 13:33 | disposition home or self-care (01) ==
LOC: HO.HOSX 13:32
PROVIDERS: Visit Provider Physician Assistant
DX: S62.302A Unspecified fracture of third metacarpal bone, right hand, initial encounter for closed fracture (principal); W19.XXXA Unspecified fall, initial encounter; Y93.9 Activity, unspecified; Y92.9 Unspecified place or not applicable; Y99.9 Unspecified external cause status; Z79.899 Other long term (current) drug therapy
CPT/HCPCS: 26600; 73130; 99202

== ENCOUNTER 2023-06-01 14:27 | Outpatient (AMB) | payer MEDICARE, MEDICAID, SELFPAY ==
--- NOTE | 2023-06-01 14:45 | MHC.OFFVIS ---
Intake Vital Signs 06/01/23 14:49 Height 5 ft 6 in Weight 175 lb BMI 28.2 Intake Visit Reasons: FC-Closed FX of third metacarpal bone of RT HAND Intake Note: Andrea a 62 year old male presents today for an ER follow up of 3rd MC fracture, DOI 05/27/23. Patient reports that he fell on his right hand, he presented to [facility] ED where xrays were taken, placed in a sling and referred to orthopedics. Current pain level is 5-6 out of 10. States with lowering his hand he feels throbbing sensation. Allergies No Known Allergies Allergy (Verified 06/01/23 15:03) Medication List - Last Reconciled 06/09/23 by Janee Whitmore PA-C amitriptyline 50 mg PO BEDTIME 30 days cetirizine 10 mg PO DAILY PRN cimetidine mg PO cyclobenzaprine 10 mg PO TID PRN dexamethasone (Decadron) 6 mg PO DAILY fluticasone propionate 110 mcg/actuation 2 puffs inhalation BID hydroxyzine HCl mg PO ibuprofen 600 mg PO Q8H PRN lidocaine 5% 1 patch topical DAILY lorazepam (Ativan) 1 mg PO BEDTIME PRN morphine 15 mg PO Q6H PRN omeprazole 40 mg PO DAILY permethrin 5% appl topical prednisone 40 mg (2 x 20 mg) PO DAILY tamsulosin 0.4 mg PO DAILY HPI FC-Closed FX of third metacarpal bone of RT HAND HPI Details 62-year-old male who presents to the 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 He was seen at ED where x-rays were performed and he was referred to our office. He states he has pain in his pain in his right hand and rates the pain as 5 on the scale of 0-10. He experiences a throbbing sensation in his lower hand. He sustained an injury in 2008 and currently has minimal function in his right hand. [facility] Medical History (Updated 06/09/23 @ 22:12 by Janee Whitmore PA-C) Asthma Surgical History (Updated 06/01/23 @ 14:48 by CYDNEY Salazar) History of surgery on arm History of eye surgery Hx of abdominal surgery Hx of hernia repair Social History Alcohol intake: current Alcohol intake frequency: holidays/special occasions only Alcohol type: beer Patient Tobacco Use Status: Never used Tobacco Review of Systems Const All systems reviewed & are unremarkable except as noted in HPI and below Physical Exam Vital Signs: BMI result Body Mass Index 28.2 Const General: cooperative and no acute distress Orientation/consciousness: patient oriented x3 Resp Effort & Inspection: normal respiratory effort and able to speak in complete sentences Cardio Peripheral pulses: Peripheral pulses 2+ throughout Neuro General: patient oriented x3 Extrem Other: Right hand: Normal to inspection. He has diffused swelling throughout the hand. His digits are held in a flexed contracted position which is his baseline due to an old tendon injury. He has mild tenderness over the fracture site. NVI. Office Procedures Casting/Splints 15257-Mmtk/Wrist Cast Application Procedure code (CPT) selection complete Fracture Care Fracture Billing Code: Fracture Billing Code Results Reviewed Results Reviewed: Xrays were obtained in the office today and personally reviewed by me of the right hand : comminuted, mildly displaced and impacted fracture of distal third of third metacarpal bone with intra-articular involvement and avulsion fragment seen. Assessment & Plan Assessment & Plan (1) Right hand fracture: Code(s): S62.91XA - Unspecified fracture of right wrist and hand, initial encounter for closed fracture Qualifiers: Encounter type: initial encounter Fracture type: closed Qualified Code(s): S62.91XA - Unspecified fracture of right wrist and hand, initial encounter for closed fracture Plan He was placed in a short arm cast with mayra taping the ring and index finger. Given the nature of his chronic contracture, I discussed the benefits of conservative vs surgical intervention. With the type of fracture he has, surgical intervention would be warranted in a fully functional hand to prevent shortening or limited motion / angulation. Given the contracture, he has significant limitation of the hand and surgery would not benefit him to help improve function given the nature of his deformity. I would like to see him back in 4-6 weeks with cast off and new x-rays, sooner if needed. Orders: Orders XR hand RT min 3V 06/01/23 M79.641 - Pain in right hand Patient Instructions: Scribed for Joe-Anne-Marie Whitmore PA-C, by Ron Lux medical receptionist medical assistant, on 06/01/2023 at 3:00 PM Janee SAENZ PA-C, have personally reviewed and agree with the information entered by the scribe. Coding Level of Care Code New Pt Level 3 (45265) Diagnoses Closed fracture of right hand, initial encounter S62.91XA Encounter type: initial encounter Fracture type: closed CPT Codes Casting - CPT: 60084-Nicz/Wrist Cast Application ([id number]) Fracture Care - Fracture Billing Code: Fracture Billing Code ([id number])
[2023-06-01 14:49] VITALS: BMI 28.2
== END 2023-06-01 15:37 | disposition home or self-care (01) ==
PROVIDERS: PCP Internal Medicine; Visit Provider Physician Assistant
DX: S62.91XA Unspecified fracture of right hand, initial encounter for closed fracture (principal)
CPT/HCPCS: 26600; 99203

== ENCOUNTER → 2023-06-15 10:28 | Outpatient (BNVA) | payer MEDICARE, MEDICAID, SELFPAY | PROVIDERS: PCP Internal Medicine; Visit Provider Physician Assistant | DX: S62.91XD Unspecified fracture of right hand, subsequent encounter for fracture with routine healing (principal) | CPT/HCPCS: 29085; 99212 ==

== ENCOUNTER 2023-06-28 06:43 | Outpatient (REF) | payer MEDICARE, MEDICAID, SELFPAY ==
--- NOTE | ~2023-06-28 | XR_ITS ---
EXAMINATION: XR HAND, RIGHT CLINICAL INFORMATION: Pain in right hand Cast off. COMPARISON: 06/01/2023 right hand TECHNIQUE: PA, lateral, and oblique views of the right hand. The patient is unable to extend fingers. FINDINGS: There is stable appearance of comminuted, displaced fracture with impaction of fragments in the distal third of the third metacarpal bone with intra-articular involvement and small avulsion fragment in the soft tissues. Continued associated soft tissue swelling particularly dorsally. XR/XR hand RT min 3V IMPRESSION: No interval change in appearance, 8, mildly displaced and impacted fracture the distal third of the third metacarpal bone with intra-articular involvement and avulsion fragment.
== END 2023-06-28 06:44 | disposition home or self-care (01) ==
LOC: HO.HOSX 06:43
PROVIDERS: Visit Provider Physician Assistant
DX: S62.91XD Unspecified fracture of right hand, subsequent encounter for fracture with routine healing (principal)
CPT/HCPCS: 73130; 99212

== ENCOUNTER 2023-06-28 15:00 | Outpatient (AMB) | payer MEDICARE, MEDICAID, SELFPAY ==
[2023-06-28 15:02] VITALS: BMI 28.2
--- NOTE | 2023-06-28 15:02 | A.OFFVIS_ITS ---
Intake Vital Signs 06/28/23 15:02 Height 5 ft 6 in Weight 175 lb BMI 28.2 Intake Visit Reasons: OV-right hand fx w cast off and xrays Intake Note: Andrea a 62 year old male who presents today for his follow up visit for her s/p right hand 3rd MC fracture, DOI 05/27/23. Cast removed and xrays updated in office. States he has mild discomfort and pain. Web Development Instructor Required: Yes Web Development Instructor Language: Finishing Supervisor Plastic Sheets Name: quiana [id number] Information Interpreted: non-clinical & clinical Accompanied by: Allergies No Known Allergies Allergy (Verified 06/28/23 15:03) HPI OV-right hand fx w cast off and xrays HPI Details 62-year-old male who returns to the [facility] today with an frame builder for a follow-up of right-hand fracture, 05/27/23. He states he has no pain or discomfort and is doing well overall. He has no concerns today. [facility] Medical History Asthma Surgical History History of surgery on arm History of eye surgery Hx of abdominal surgery Hx of hernia repair Social History Alcohol intake: current Alcohol intake frequency: holidays/special occasions only Alcohol type: beer Patient Tobacco Use Status: Never used Tobacco Review of Systems Const All systems reviewed & are unremarkable except as noted in HPI and below Physical Exam Vital Signs: BMI result Body Mass Index 28.2 Const General: cooperative and no acute distress Orientation/consciousness: patient oriented x3 Resp Effort & Inspection: normal respiratory effort and able to speak in complete sentences Cardio Peripheral pulses: Peripheral pulses 2+ throughout Neuro General: patient oriented x3 Extrem Other: Right hand: Normal to inspection. No swelling throughout the hand. His digits are held in a flexed contracted position which is his baseline due to an old tendon injury. He has mild tenderness over the fracture site. NVI. Results Reviewed Results Reviewed: Xrays were obtained in the office today and personally reviewed by me of the right hand : comminuted, mildly displaced and impacted fracture of distal third of third metacarpal bone with intra-articular involvement and avulsion fragment seen. Assessment & Plan Assessment & Plan (1) Right hand fracture: Code(s): S62.91XA - Unspecified fracture of right wrist and hand, initial encounter for closed fracture Qualifiers: Encounter type: subsequent encounter Fracture healing: with routine healing Fracture type: closed Qualified Code(s): S62.91XD - Unspecified fracture of right wrist and hand, subsequent encounter for fracture with routine healing Plan He was transitioned into a Velcro wrist splint which he will wear at all times. He can remove the splint for hygiene and mayra tape the middle and ring finger for support. I would like to see him back in 4 weeks with new x-rays, sooner if needed. Orders: Orders XR hand RT min 3V Today M79.641 - Pain in right hand Patient Instructions: Scribed for Janee Whitmore PA-C, by Ron Lux emergency medical technician basic, on 06/28/2023 at 3:15 PM EST. I, Janee Whitmore PA-C, have personally reviewed and agree with the information entered by the scribe. Coding Level of Care Code Global (79088) Diagnoses Closed fracture of right hand with routine healing, subsequent encounter S62.91XD Encounter type: subsequent encounter Fracture healing: with routine healing Fracture type: closed
== END 2023-06-28 15:52 | disposition home or self-care (01) ==
PROVIDERS: PCP Internal Medicine; Visit Provider Physician Assistant
DX: S62.91XD Unspecified fracture of right hand, subsequent encounter for fracture with routine healing (principal)
CPT/HCPCS: 99024

== ENCOUNTER 2023-07-26 09:18 | Outpatient (AMB) | payer MEDICARE, MEDICAID, SELFPAY ==
--- NOTE | 2023-07-26 09:20 | MHC.OFFVIS ---
Vital Signs 07/26/23 09:32 Height 5 ft 6 in Weight 175 lb BMI 28.2 Intake Visit Reasons: OV-right hand fx Intake Note: Andrea 63 yr old male presents today for his follow up visit for his s/p right hand 3rd MC fracture, DOI 05/27/23. States he cont's to have swelling in his MCP and mild pain. He continues to wear his brace. XRays updated in office. Allergies No Known Allergies Allergy (Verified 07/26/23 09:42) HPI HPI OV-right hand fx: Details: 63-year-old male who returns to the office today with an workplace trainer and assessor for a follow-up of right 3rd metacarpal fracture, 05/27/23. He continues to have swelling and mild pain in his MCP. He also reports he has pain with picking items. He has been wearing his brace as instructed. He has no other concerns today. [facility] Medical History Asthma Surgical History History of surgery on arm History of eye surgery Hx of abdominal surgery Hx of hernia repair Social History Alcohol intake: current Alcohol intake frequency: holidays/special occasions only Alcohol type: beer Patient Tobacco Use Status: Never used Tobacco Review of Systems Const All systems reviewed & are unremarkable except as noted in HPI and below Physical Exam Vital Signs: BMI result Body Mass Index 28.2 Const General: cooperative and no acute distress Orientation/consciousness: patient oriented x3 Resp Effort & Inspection: normal respiratory effort and able to speak in complete sentences Cardio Peripheral pulses: Peripheral pulses 2+ throughout Neuro General: patient oriented x3 Extrem Other: Right hand: Normal to inspection. No swelling throughout the hand. His digits are held in a flexed contracted position which is his baseline due to an old tendon injury. He has no tenderness over the fracture site. NVI. Results Reviewed Results Reviewed: Xrays were obtained in the office today and personally reviewed by me of the right hand : stable, interval healing over the 4th mcp fx Assessment & Plan Assessment & Plan (1) Right hand fracture: Code(s): S62.91XA - Unspecified fracture of right wrist and hand, initial encounter for closed fracture Category: Medical Qualifiers: Encounter type: subsequent encounter Fracture healing: with routine healing Fracture type: closed Qualified Code(s): S62.91XD - Unspecified fracture of right wrist and hand, subsequent encounter for fracture with routine healing Plan He will discontinue the use of brace this time and increase activity as tolerated using caution for the next 4-6 weeks to not perform any type of lifting which may cause him pain. If symptoms persist or worsens, patient will contact the office, otherwise follow-up as needed. Orders: Orders XR hand RT min 3V Today M79.641 - Pain in right hand Patient Instructions: Scribed for Janee Whitmore PA-C, by Ron Lux medical radiation tech, on 07/26/2023 at 9:15 AM EST. IJanee PA-C, have personally reviewed and agree with the information entered by the scribe. Coding Level of Care Code Global (04616) Diagnoses Closed fracture of right hand with routine healing, subsequent encounter S62.91XD Encounter type: subsequent encounter Fracture healing: with routine healing Fracture type: closed
[2023-07-26 09:32] VITALS: BMI 28.2
== END 2023-07-26 09:50 | disposition home or self-care (01) ==
PROVIDERS: PCP Internal Medicine; Visit Provider Physician Assistant
DX: S62.91XD Unspecified fracture of right hand, subsequent encounter for fracture with routine healing (principal)
CPT/HCPCS: 99024

== ENCOUNTER 2023-07-26 09:38 | Outpatient (REF) | payer MEDICARE, MEDICAID, SELFPAY ==
--- NOTE | ~2023-07-26 | XR_ITS ---
EXAMINATION: XR HAND, RIGHT CLINICAL INFORMATION: Right hand pain, unable to straighten digits. Best possible images at this time. COMPARISON: 06/28/2023 TECHNIQUE: 3 views of the right hand. FINDINGS: Redemonstration of comminuted, displaced fracture with impaction of fragments in the distal third of the third metacarpal. There is intra-articular extension with small avulsion fragments in the adjacent soft tissues. There is some bridging callus formation, although fracture lines are still visible. Associated soft tissue swelling redemonstrated, particularly along the dorsal aspect. Evaluation of the phalanges is limited due to flexion of the digits. Moderate degenerative changes in the first carpometacarpal and metacarpophalangeal joints. XR/XR hand RT min 3V IMPRESSION: Redemonstration of comminuted, displaced fracture with impaction of fragments in the distal third of the third metacarpal with some bridging callus formation, although fracture lines are still visible.
== END 2023-07-26 09:39 | disposition home or self-care (01) ==
LOC: HO.HOSX 09:38
PROVIDERS: Visit Provider Physician Assistant
DX: S62.91XD Unspecified fracture of right hand, subsequent encounter for fracture with routine healing (principal)
CPT/HCPCS: 73130; 99212

== ENCOUNTER 2023-11-20 21:44 | Emergency (ER) | payer MEDICARE, MEDICAID, SELFPAY ==
--- NOTE | ~2023-11-20 | XR_ITS ---
EXAMINATION: XR FINGER, LEFT CLINICAL INFORMATION: Crush injury to left fifth finger COMPARISON: None available. TECHNIQUE: Frontal x-ray of left hand, frontal and lateral x-rays of the left fifth finger. FINDINGS: BONES: Fracture dorsal base of left fifth toe distal phalanx with moderate also displacement is seen. JOINTS: Alignment of joints is normal. SOFT TISSUE: Soft tissue is normal. No radiopaque foreign body or abnormal air collection is seen. XR/XR finger LT min 2V IMPRESSION: 1. Fracture dorsal base of left fifth toe distal phalanx with moderate displacement. Electronically signed by: Shante Mcgill MD 11/21/2023 07:59 AM EDT
[2023-11-20 21:57] VITALS: BP 132/88; PULSE 93; RESP 18; TEMP 36.8; O2SAT 97; BMI 25.0
[2023-11-21 01:14] VITALS: BP 130/73; PULSE 64; RESP 16; TEMP 36.4; O2SAT 100
[2023-11-21 02:00] VITALS: BP 116/64; PULSE 58; RESP 12; TEMP 36.7; O2SAT 99
--- NOTE | 2023-11-21 02:43 | PC.NURSE ---
Pt is a 63 y/o male who presents for evalution of a laceration on his right
--- NOTE | 2023-11-21 02:44 | PC.NURSE ---
Pt is a 63 y/o male who presents for evaluation of a laceration on his right pinky finger. Injury was occurred while working with a aaron in the garage. Bleeding is controlled at this time. Last tetanus vaccine is unknown. Pt als reports some intermitent tightness in his chest over the past four days secondary to his history of asthma, accompanied by a dry cough. No fever. Has been using his prescribed MDI at home with minimal relief. Reports his symptoms have resolved since arriving here for treatment. Able to speak in full sentences. Denies any other complaints at this time including abd pain, recent illness, trauma, recent travel, or contact with anyone known to be ill.
[2023-11-21 04:00] VITALS: BP 121/68; PULSE 56; RESP 12; TEMP 36.6; O2SAT 99
[2023-11-21 06:00] VITALS: BP 106/60; PULSE 60; RESP 16; TEMP 36.6; O2SAT 97
--- NOTE | 2023-11-21 07:06 | ED.GENADULT ---
HPI - General Adult General Chief complaint: Wound/Laceration Stated complaint: left pinkie finger wound Time Seen by Provider: 11/21/23 07:06 History of Present Illness ED Provider: Lala ZABALA narrative: The patient is a 63-year-old male who sustained a crush injury to his left distal pinky finger when he was removing a transmission from his car. He sustained a laceration to the fingertip and there was bleeding. Related Data Home Medications ?Medication ?Instructions ?Recorded ?Confirmed cimetidine 400 mg tablet mg PO 10/08/20 hydroxyzine HCl 10 mg tablet mg PO 10/08/20 permethrin 5 % topical cream appl topical 10/08/20 fluticasone propionate 110 2 puff inhalation BID 06/01/23 06/09/23 mcg/actuation HFA aerosol inhaler tamsulosin 0.4 mg capsule 0.4 mg PO DAILY 06/01/23 06/09/23 Previous Rx's ?Medication ?Instructions ?Recorded cetirizine 10 mg capsule 10 mg PO DAILY PRN allergy 09/13/20 symptoms #14 caps lorazepam 1 mg tablet (Ativan) 1 mg PO BEDTIME PRN sleep #7 tabs 09/18/20 amitriptyline 50 mg tablet 50 mg PO BEDTIME 30 days #30 tabs 10/08/20 dexamethasone 6 mg tablet 6 mg PO DAILY #7 tabs 10/31/20 (Decadron) omeprazole 40 mg capsule,delayed 40 mg PO DAILY #30 caps 11/09/20 release cyclobenzaprine 10 mg tablet 10 mg PO TID PRN muscle spasm #14 08/13/22 tabs ibuprofen 600 mg tablet 600 mg PO Q8H PRN pain #14 tabs 08/13/22 lidocaine 5 % topical patch 1 patch topical DAILY #15 ea 08/13/22 morphine 15 mg immediate release 15 mg PO Q6H PRN pain #12 tabs 05/29/23 tablet cephalexin 500 mg capsule 500 mg PO QID 5 days #20 caps 11/21/23 Allergies Allergy/AdvReac Type Severity Reaction Status Date / Time No Known Allergies Allergy Verified 11/20/23 21:59 Review of Systems Review of Systems: Yes all other systems are reviewed and are negative PMFSH Past Medical History Medical History Asthma Surgical History History of surgery on arm History of eye surgery Hx of abdominal surgery Hx of hernia repair Social History Social History Alcohol intake: current Alcohol intake frequency: holidays/special occasions only Alcohol type: beer Patient Tobacco Use Status: Never used Tobacco Advance Directives: No Advance Directives Information Provided: No Do you have a plan to hurt others: No Plan Physical Exam ED Vital Signs: Vital Signs - 24 hr 11/20/23 21:57 11/21/23 01:14 11/21/23 02:00 Temperature 98.3 F 97.6 F 98.0 F Pulse Rate 93 64 58 Respiratory Rate 18 16 12 Blood Pressure 132/88 130/73 116/64 Pulse Oximetry 97 100 99 Oxygen Delivery Method Room Air Room Air Room Air 11/21/23 04:00 11/21/23 06:00 11/21/23 10:41 Temperature 97.8 F 97.8 F 98.5 F Pulse Rate 56 60 55 Respiratory Rate 12 16 16 Blood Pressure 121/68 106/60 123/88 Pulse Oximetry 99 97 99 Oxygen Delivery Method Room Air Room Air Room Air BMI result Body Mass Index 25.0 Const Other: The patient is awake and alert, pleasant cooperative. He does not seem in acute distress. [facility] Head: Yes normal to inspection Eyes General: appearance normal, both eyes and all related structures Resp Effort & Inspection: normal respiratory effort Skin Other: The patient has a laceration to the distal left index finger. This does not involve the fingernail. It involves the tip of the pad and the ulnar side of the pad. It is about 2 cm in length and quite deep. Neuro Other: Sensation is intact. Extrem Other: The patient has a mallet finger type deformity at the left distal finger. The D IP joint seems slightly flexed. There is a laceration to the pad of the finger. Medications Administered Discontinued Medications Generic Name Dose Route Start Last Admin Trade Name Freq PRN Reason Stop Dose Admin Diphtheria/Tetanus/Acell Pertussis 0.5 ml 11/21/23 07:15 11/21/23 08:12 Diphth,Pertus(Acell),Tet Adult 0.5 Ml Syringe IM 11/21/23 07:16 0.5 ml .ONCE ONE Administration Cefazolin Sodium/Dextrose 2 gm in 50 mls @ 100 mls/hr 11/21/23 07:56 11/21/23 08:57 Ancef IV 11/21/23 08:25 Infused ONCE ONE Infusion Lidocaine HCl 10 ml 11/21/23 08:29 11/21/23 08:56 Lidocaine Hcl 1 % 10 Ml Vial INFILTRATI 11/21/23 08:30 10 ml ONCE ONE Administration Procedures Laceration Laceration 1: Site: hand Side (If applicable): left Size (cm): 2.5 Description: flap Depth: simple, single layer Local Anesthetic: lidocaine 1% Amount of anesthesia used (mL): 8 Pre-repair: wound explored and irrigated extensively Skin layer closed with: nylon Size (cm): 4-0 Number of sutures: 6 Medical Decision Making Medical Decision Making MDM Narrative: The patient presents for evaluation of a crush injury to the left distal small finger. There is a laceration on the either the finger. X-ray shows a fracture of the proximal portion of the distal phalanx with angulation and I believe the angulation contributes to a mallet finger type deformity clinically. Given the location of the laceration this has to be assumed to be a possible open fracture. The patient was given a tetanus shot and 2 g of cefazolin. The case was discussed with Orthopedics and they felt that it was appropriate for me to watch that the wound and close the wound and discharge the patient on antibiotics and follow up with the orthopedic office for additional care. Therefore after prepping the hand the left small finger was anesthetized with 1% lidocaine by digital block. I then copiously irrigated the wound and sutured it with 6 simple interrupted stitches using 4-0 nylon. At who wound edge approximation was achieved. The patient tolerated the procedure well. The finger was splinted in extension at the PIP joint. The patient will be prescribed cephalexin 500 mg q.i.d.. The patient should contact the orthopedic office for follow up. Discharge Plan Discharge Clinical Impression: Open fracture of distal phalanx of left little finger Patient Disposition: Home, Self-Care Instructions: Finger Fracture (ED) Additional Instructions: Please package pick up the prescription for the antibiotic and take it 4 times a day, approximately every 6 hours. Keep the hand elevated to the level of your heart or higher. You may use acetaminophen and/or ibuprofen as needed for discomfort. Please contact the orthopedic office today for a prompt follow up appointment. Return to the emergency room if worse. Prescriptions: New cephalexin 500 mg capsule 500 mg PO QID 5 Days Qty: 20 0RF No Action cetirizine 10 mg capsule 10 mg PO DAILY PRN (Reason: allergy symptoms) Qty: 14 0RF dexamethasone [Decadron] 6 mg tablet 6 mg PO DAILY Qty: 7 0RF lorazepam [Ativan] 1 mg tablet 1 mg PO BEDTIME PRN (Reason: sleep) Qty: 7 0RF omeprazole 40 mg capsule,delayed release(DR/EC) 40 mg PO DAILY Qty: 30 0RF cyclobenzaprine 10 mg tablet 10 mg PO TID PRN (Reason: muscle spasm) Qty: 14 0RF ibuprofen 600 mg tablet 600 mg PO Q8H PRN (Reason: pain) Qty: 14 0RF lidocaine 5 % adhesive patch,medicated 1 patch topical DAILY Qty: 15 0RF Rx Instructions: leave on most painful area for up to 12 hrs morphine 15 mg tablet 15 mg PO Q6H PRN (Reason: pain) Qty: 12 0RF Rx Instructions: Partial Fill upon patient request. hydroxyzine HCl 10 mg tablet PO cimetidine 400 mg tablet PO permethrin 5 % cream topical amitriptyline 50 mg tablet 50 mg PO BEDTIME 30 Days Qty: 30 0RF tamsulosin 0.4 mg capsule 0.4 mg PO DAILY fluticasone propionate 110 mcg/actuation HFA aerosol inhaler 2 puff inhalation BID Referrals: [facility] [place] [facility] [Provider Group] (Left fifth finger open fracture) Interventions: ED Discharge Assessment Last Done: 11/21/23 10:41 Discharge Date/Time: 11/21/23 10:42 Print Language: Indonesian
[2023-11-21] MEDS: Diphth,Pertus(ACell),Tet Adult 0.5 ML SYRINGE IM (08:12)
[2023-11-21] MEDS: ceFAZolin Sodium/Dextrose,Iso 2 GM/50 ML PIGGYBACK IV (08:12)
[2023-11-21] MEDS: Lidocaine HCl 1 % 10 ML VIAL INFILTRATI (08:56)
[2023-11-21 10:41] VITALS: BP 123/88; PULSE 55; RESP 16; TEMP 36.9; O2SAT 99
== END 2023-11-21 10:42 | disposition home or self-care (01) ==
PROVIDERS: Emergency Provider Emergency Medicine; PCP Internal Medicine
DX: S62.637B Displaced fracture of distal phalanx of left little finger, initial encounter for open fracture (principal); W24.1XXA Contact with transmission devices, not elsewhere classified, initial encounter; W31.89XA Contact with other specified machinery, initial encounter; Y93.89 Activity, other specified; Y92.89 Other specified places as the place of occurrence of the external cause; Y99.9 Unspecified external cause status
CPT/HCPCS: 73140; 90471; 90715; 96365; 99283; 99284; J0690

== ENCOUNTER 2023-11-28 08:53 | Outpatient (REF) | payer MEDICARE, MEDICAID, SELFPAY ==
--- NOTE | ~2023-11-28 | XR_ITS ---
EXAMINATION: XR HAND, LEFT CLINICAL INFORMATION: Left hand/small finger pain. COMPARISON: 11/21/2023. TECHNIQUE: PA, lateral, and oblique views of the left hand. FINDINGS: There is a flexion deformity of the 5th distal interphalangeal joint with slight volar subluxation and a prominent dorsal osteophyte possibly the result of a remote, healed extensor tendon avulsion. No acute fracture. Incidental 2 mm foreign body in the soft tissues at the radial aspect of the 2nd proximal phalanx. XR/XR hand LT min 3V IMPRESSION: Flexion deformity of the 5th distal interphalangeal joint with a prominent dorsal osteophyte, possibly the result of a remote, healed extensor tendon avulsion. No acute fracture. Electronically signed by: Michael Choe MD 12/04/2023 10:45 AM EDT
== END 2023-11-28 08:54 | disposition home or self-care (01) ==
LOC: HO.HOSX 08:53
PROVIDERS: PCP Internal Medicine; Visit Provider Orthopaedic Surgery
DX: S62.637A Displaced fracture of distal phalanx of left little finger, initial encounter for closed fracture (principal); M20.012 Mallet finger of left finger(s); M79.642 Pain in left hand; X58.XXXA Exposure to other specified factors, initial encounter; Y93.9 Activity, unspecified; Y92.9 Unspecified place or not applicable; Y99.9 Unspecified external cause status
CPT/HCPCS: 26750; 73130; 99212

== ENCOUNTER 2023-11-28 09:18 | Outpatient (AMB) | payer MEDICARE, MEDICAID, SELFPAY ==
--- NOTE | 2023-11-28 09:19 | A.OFFVIS_ITS ---
Vital Signs 11/28/23 09:19 Weight 179 lb Intake Visit Reasons: FC-LT 5th finger crush injury open fx, DOI 11/20/23 Intake Note: Andrea is a 63yo right hand dominant male who presents today s/p left 5th finger crush injury open fx, DOI 11/20/23. Patient comes in today with stitches on. Patient denies numbness and tingling that occurs daily. Denies locking of finger. Patient denies pain and is not taking anything for pain. He finished a course of antibiotics. Denies any prior injuries or surgeries to the left hand. Community Education Coordinator Required: Yes Community Education Coordinator Language: Account Contact Associate Services: Community Education Coordinator Present Community Education Coordinator Name: JewelRMA/LESLIE Allergies No Known Allergies Allergy (Verified 11/20/23 21:59) HPI HPI FC-LT 5th finger crush injury open fx, DOI 11/20/23: Details: Andrea is a 63 year old right hand dominant Khmer speaking man who presents for a left small finger distal phalanx fracture, from a crush injury, DOI: 11/21/23 when removing his car transmission. He was seen in the ED the same day, where his finger was sutured and splinted with the PIP joint in extension. He was given a course of Keflex. He says he is doing well and he denies any pain. He denies any numbness or tingling. He has completed his Abx as instructed. He is currently not working. [facility] Medical History (Updated 11/28/23 @ 09:37 by Atif Golden) Asthma Surgical History History of surgery on arm History of eye surgery Hx of abdominal surgery Hx of hernia repair Social History Alcohol intake: current Alcohol intake frequency: holidays/special occasions only Alcohol type: beer Patient Tobacco Use Status: Never used Tobacco Review of Systems Const All systems reviewed & are unremarkable except as noted in HPI and below Physical Exam Const General: cooperative, healthy appearing and no acute distress Orientation/consciousness: patient oriented x3 HEENT Head: Yes normocephalic and Yes atraumatic Eyes EOM: EOMs intact bilaterally Resp Effort & Inspection: normal respiratory effort and able to speak in complete sentences Cardio Jugular venous distension: no JVD Skin General skin exam: turgor normal Rashes: no rashes Neuro General: patient oriented x3 Extrem Other: Evaluation of Left Upper Extremity: The patient is alert, oriented, and in no acute distress Neuro: Median, Ulnar, Radial nerves motor and sensory intact and sensation is normal to the tips of all digits Vascular: Cap refill brisk ROM: There is an ~50 degree mallet deformity of the small finger [ ] joint General: No evidence of infection There is a flap of tissue at the pad & tip of the small finger, which is sutured closed. The flap looks likely viable, though there is a blueish tinge to the skin Some ecchymosis & swelling at the tip of the finger No tenderness over the DIP joint Tender to the tip of the finger Radiographs: 3 views of the left hand, with attention to the small finger, were taken and viewed by me today. They show a small finger distal phalanx tuft fracture, non- displaced. He also has an old healed small finger distal phalanx base fracture, with a mallet deformity. Psych Appearance: grossly normal Affect: normal affect Attitude: cooperative Office Procedures Fracture Care Details: Fracture care 91392 Fracture Billing Code: Fracture Billing Code Assessment & Plan Assessment & Plan (1) Open fracture of distal phalanx of left little finger: Code(s): S62.637B - Displaced fracture of distal phalanx of left little finger, initial encounter for open fracture Category: Medical (2) Mallet deformity of left little finger: Code(s): M20.012 - Mallet finger of left finger(s) Category: Medical Plan Assessment & Plan: 1. Left open distal phalanx fracture tuft, non-displaced From a crush injury, DOI: 11/21/23 I educated him about this condition I discussed operative and non-operative treatment options I recommend we manage this conservatively I explained the signs and symptoms of infection, if the patient develops any new or worsening erythema, drainage, pain, or warmth they should contact the clinic or attend the ED. He has completed his course of Abx At this point his nail is appropriately splinting the fracture and I want him to work on range of motion. He can use the splint if he is participating in activities where he might strike his finger. I discussed activity modifications, he is to lift nothing heavier than a cellphone for the next 4 weeks. He should avoid any heavy activities or impact activities for the next 4 weeks He should avoid any underwater activities for the next 2 weeks He will follow up next week for a wound check, with X-rays necessary only if he strikes his finger Scribed for Jaimee Engle MD by Atif Golden, medical coding technician, on 11/28/23 at 9:30 AM, EST. Orders: Orders XR hand LT min 3V Today M79.642 - Pain in left hand Coding Level of Care Code Est Pt Level 3 (65242) Diagnoses Open fracture of distal phalanx of left little finger S62.637B Mallet deformity of left little finger M20.012 CPT Codes Fracture Care - Fracture Billing Code: Fracture Billing Code ([id number])
== END 2023-11-28 09:39 | disposition home or self-care (01) ==
PROVIDERS: PCP Internal Medicine; Visit Provider Orthopaedic Surgery
DX: S62.637B Displaced fracture of distal phalanx of left little finger, initial encounter for open fracture (principal); M20.012 Mallet finger of left finger(s)
CPT/HCPCS: 26750; 99213

== ENCOUNTER 2023-12-05 09:22 | Outpatient (AMB) | payer MEDICARE, MEDICAID, SELFPAY ==
[2023-12-05 09:27] VITALS: BMI 28.9
--- NOTE | 2023-12-05 09:27 | MHC.OFFVIS ---
Vital Signs 12/05/23 09:27 Height 5 ft 6 in Weight 179 lb BMI 28.9 Intake Visit Reasons: OV-LT 5th finger fx wound check, DOI 11/20/23 Intake Note: Andrea is a 63 yo right hand dominant male who presents today for a wound check s/p left 5th finger crush injury open fx, DOI 11/20/23. Patient reports swelling and pain on the palmar aspect of the 5th DIP joint. He is taking Tramadol for pain. Patient reports he is now unable to bend his 5th finger, although he had more ROM during last visit. Stitches removed in office today and steri strips applied. Yellow discharge was present during stitch removal process. Stress Analyst Required: Yes Stress Analyst Language: Hepatology Physician Name: SUPRIYA Holloway/LESLIE Allergies No Known Allergies Allergy (Verified 12/05/23 09:39) HPI HPI OV-LT 5th finger fx wound check, DOI 11/20/23: Details: Andrea is a 63 year old right hand dominant Swedish speaking man who returns for a wound check of his left small finger distal phalanx fracture, from a crush injury, DOI: 11/21/23 when removing his car transmission. He complains of increased pain and new redness & drainage from his injury, which began in the last few days. He describes his pain as throbbing. He denies any numbness or tingling. He completed his Abx as instructed last week, and has not been taking any Abx since his last appointment, He is currently not working. [facility] Medical History (Updated 12/05/23 @ 09:59 by Atif Golden) Asthma Surgical History History of surgery on arm History of eye surgery Hx of abdominal surgery Hx of hernia repair Social History (Updated 11/30/23 @ 10:57 by SUPRIYA Landaverde) Alcohol intake: current Alcohol intake frequency: holidays/special occasions only Alcohol type: beer Patient Tobacco Use Status: Never used Tobacco Current occupation: rt handed Physical Exam Vital Signs: BMI result Body Mass Index 28.9 Extrem Other: Evaluation of Left Upper Extremity: The patient is alert, oriented, and in no acute distress Neuro: Median, Ulnar, Radial nerves motor and sensory grossly intact There is some decreased subjective sensation to the tip of the small finger Vascular: Cap refill brisk ROM: There is an ~50 degree mallet deformity of the small finger DIP joint General: He has new erythema about his wound, and white blanching of the skin around the paronychia, likely with pus underneath. There is a flap of tissue at the pad & tip of the small finger, which is sutured closed. Sutures were removed today in clinic. The flap looks likely viable with improved cap refill today Increased swelling and tenderness in the pad of the small finger, again with a paronychia wrapping around the ulnar paronychial fold No tenderness along the flexor tendon sheath, proximal to the DIP joint Radiographs: 3 views of the left hand, with attention to the small finger, were taken and viewed by me today. They show a small finger distal phalanx tuft fracture, non-displaced. He also has an old healed small finger distal phalanx base fracture, with a mallet deformity. Assessment & Plan Assessment & Plan (1) Paronychia of left little finger: Code(s): L03.012 - Cellulitis of left finger Category: Medical (2) Open fracture of distal phalanx of left little finger: Code(s): S62.637B - Displaced fracture of distal phalanx of left little finger, initial encounter for open fracture Category: Medical (3) Mallet deformity of left little finger: Code(s): M20.012 - Mallet finger of left finger(s) Category: Medical Plan Assessment & Plan: 1. Left small finger open distal phalanx fracture tuft, non-displaced From a crush injury, DOI: 11/21/23 2. Left small finger paronychia This is a new development/diagnosis I educated him about this condition I discussed operative and non-operative treatment options I recommend surgery, and he is in agreement I am ordering a 10-day course of PO Augmentin to begin today The risks and benefits of operative treatment were discussed with the patient and the patient wishes to proceed with surgery. These risks include, but are not limited to risk of damage to blood vessels, nerves, tendons, infection, recurrence, incomplete relief of preoperative symptoms, persistent pain, possible need for further surgery and the risks associated with regional blocks and anesthesia. The plan is to take the patient to the operating room sometime on 12/06/23 for the following procedures: 1. Left small finger I&D, under local All of the preoperative paperwork including the consent was reviewed today. All the patient's questions were answered. The patient understands that they will be contacted by our economic developer soon to schedule this procedure He denies Diabetes, blood thinners, asthma, heart, lung, kidney issues 3. Left small finger DIP joint mallet deformity Of ~50 degrees Secondary to an old healed distal phalanx base fracture Scribed for Jaimee Engle MD by Atif Golden anesthesiology medical doctor, on 12/05/23 at 10:00 AM, EST. Medications: New amoxicillin-pot clavulanate 875-125 mg 1 tab PO Q12H 20 tabs 0RF Coding Level of Care Code Est Pt Level 4 (82787) Diagnoses Paronychia of left little finger L03.012 Open fracture of distal phalanx of left little finger S62.637B Mallet deformity of left little finger M20.012
== END 2023-12-05 10:12 | disposition home or self-care (01) ==
PROVIDERS: PCP Internal Medicine; Visit Provider Orthopaedic Surgery
DX: L03.012 Cellulitis of left finger (principal); S62.637B Displaced fracture of distal phalanx of left little finger, initial encounter for open fracture; M20.012 Mallet finger of left finger(s)
CPT/HCPCS: 99024

== ENCOUNTER → 2023-12-05 09:22 | Outpatient (BNVA) | payer MEDICARE, MEDICAID, SELFPAY | PROVIDERS: PCP Internal Medicine; Visit Provider Orthopaedic Surgery | DX: Z48.02 Encounter for removal of sutures (principal); S62.637B Displaced fracture of distal phalanx of left little finger, initial encounter for open fracture; L03.012 Cellulitis of left finger; M20.012 Mallet finger of left finger(s) | CPT/HCPCS: 99212 ==

== ENCOUNTER 2023-12-06 12:24 | Day surgery (SDC) | payer MEDICARE, MEDICAID, SELFPAY ==
[2023-12-06 13:08] VITALS: BMI 27.8
[2023-12-06 13:12] VITALS: BP 110/59; PULSE 64; RESP 18; TEMP 36.6; O2SAT 97
--- NOTE | 2023-12-06 14:03 | MHC.SHP ---
Pre-Procedural Eval Section A - 24 Hr Update-Section A only Date of Service: 12/06/23 The patient is an INPATIENT: No Changes since office visit: No Cold of Flu in the past 2 weeks, No New Medical Problems, No Changes in Medication and No Patient answered all questions The patient has been examined within 24 hours of the surgical procedure. The History & Physical has been completed within 30 days and I have reviewed it.: Yes Section B - Complete if H&P > 30 days Chief Complaint: Displaced fracture of distal phalanx of left Allergies: Allergies Allergy/AdvReac Type Severity Reaction Status Date / Time No Known Allergies Allergy Verified 12/06/23 12:51 Plan I have reviewed the history and physical and performed a pertinent physical examination on my patient. No changes have occurred unless specified. Time Spent With Patient Time: Total time managing care of this patient today ____ minutes.
--- NOTE | 2023-12-06 14:05 | MHC.SHP ---
Pre-Procedural Eval Section A - 24 Hr Update-Section A only Date of Service: 12/06/23 Section B - Complete if H&P > 30 days Chief Complaint: Displaced fracture of distal phalanx of left , and Details of Present Illness: Left distal phalanx fracture and paronychia Allergies: Allergies Allergy/AdvReac Type Severity Reaction Status Date / Time No Known Allergies Allergy Verified 12/06/23 12:51 Plan I have reviewed the history and physical and performed a pertinent physical examination on my patient. No changes have occurred unless specified. Time Spent With Patient Time: Total time managing care of this patient today ____ minutes.
--- NOTE | 2023-12-06 14:06 | W.PM.OPN ---
Operative Note Operative Note Date of Service: 12/06/23 Narrative: Operative Note Preop diagnosis: 1. Left small finger paronychia Postop diagnosis: same Procedure: 1. Left small finger I and D paronychia dorsally, extending volarly beneath the flap created by his previous injury to I and D possible felon Surgeon: Jaimee Engle MD Hadoop Infrastructure Architect: Buddy CATALAN Anesthesia: digital block using 1% lidocaine with epinephrine Findings: Creamy yellow purulence from the dorsal paronychia. Minimal drainage from the felon, beneath the skin flap on the pad from his previous injury. EBL: Less than 5 mL Tourniquet time: None Specimens: Cultures were taken Complications: None Disposition: Brought to recovery room in stable condition Plan: Follow-up for 7-10 days for wound check and suture removal and to check pathology Indications: The patient is 63 years old, with a left small finger paronychial infection with extension volarly to a felon beneath the volar skin flap from his previous crush injury. . The risks and benefits of operative treatment including but not limited to risk of damage to blood vessels, nerves, tendons, infection, persistent pain, persistent symptoms, recurrence or possible need for additional surgery were discussed with the patient and the patient wishes to proceed with surgery. Procedure: Once consent was obtained a digital block was performed in the preop area using a combination of 1% lidocaine with epinephrine. The patient was then brought back to the operating suite and placed on the operative table in supine position. A tourniquet was applied to the proximal aspect of the left upper extremity and the limb was prepped and draped in a standard surgical fashion. Once assured that we had a good block, I made a longitudinal incision over the ulnar paronychial fold of the left small finger. We had creamy yellow purulence and cultures were taken. We evacuated the purulence. I then used tenotomy scissors to make a small opening beneath the volar flap in the pad of the finger. This allowed me to open this area up. We had a small amount of purulence from this area. I then used a 10 mL syringe at an Angiocath to copiously irrigate these wounds. Hemostasis was obtained with a brief period of local pressure. No sutures were placed. Once satisfied with our I&D sterile dressing was applied. The patient appears to have tolerated the procedure well and with no complications. All digits were well vascularized at the conclusion of the case.
--- NOTE | 2023-12-06 14:46 | PC.NURSE ---
report given to micaela bolden rn - aware of one signature needed on preop record after giving report.
[2023-12-06 15:51] VITALS: BP 115/72; PULSE 60; RESP 20; TEMP 36.2; O2SAT 99
== END 2023-12-06 15:54 | disposition home or self-care (01) ==
PROVIDERS: PCP Internal Medicine; Visit Provider Orthopaedic Surgery
PROC: (CPT 10180; principal; 2023-12-06 16:30)
DX: S62.637B Displaced fracture of distal phalanx of left little finger, initial encounter for open fracture (principal); L03.012 Cellulitis of left finger; A49.02 Methicillin resistant Staphylococcus aureus infection, unspecified site; M20.012 Mallet finger of left finger(s); W24.1XXA Contact with transmission devices, not elsewhere classified, initial encounter; Y93.89 Activity, other specified; Y92.9 Unspecified place or not applicable; Y99.9 Unspecified external cause status
CPT/HCPCS: 10180; 87070; 87077; 87186; 87205; J0171

== ENCOUNTER → 2023-12-06 12:24 | Outpatient (BNV) | payer MEDICARE, MEDICAID, SELFPAY | PROVIDERS: PCP Internal Medicine; Visit Provider Orthopaedic Surgery | DX: L03.012 Cellulitis of left finger (principal) | CPT/HCPCS: 26011 ==

== ENCOUNTER 2023-12-11 13:30 | Outpatient (AMB) | payer MEDICARE, MEDICAID, SELFPAY ==
[2023-12-11 13:41] VITALS: BMI 27.8
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
== END 2023-12-11 14:24 | disposition home or self-care (01) ==
PROVIDERS: PCP Internal Medicine; Visit Provider Orthopaedic Surgery
DX: A49.02 Methicillin resistant Staphylococcus aureus infection, unspecified site (principal); L03.012 Cellulitis of left finger; S62.637B Displaced fracture of distal phalanx of left little finger, initial encounter for open fracture; M20.012 Mallet finger of left finger(s)
CPT/HCPCS: 99024

== ENCOUNTER → 2023-12-11 13:30 | Outpatient (BNVA) | payer MEDICARE, MEDICAID, SELFPAY | PROVIDERS: PCP Internal Medicine; Visit Provider Orthopaedic Surgery | DX: L03.012 Cellulitis of left finger (principal); A49.02 Methicillin resistant Staphylococcus aureus infection, unspecified site; S62.637B Displaced fracture of distal phalanx of left little finger, initial encounter for open fracture; W24.1XXA Contact with transmission devices, not elsewhere classified, initial encounter; Y93.89 Activity, other specified; Y92.9 Unspecified place or not applicable; Y99.9 Unspecified external cause status; M20.012 Mallet finger of left finger(s) | CPT/HCPCS: 99212 ==